=== PATIENT | female | born 1985 | race Caucasian/White ===

== ENCOUNTER → 2016-12-07 | Outpatient (CLI) | payer SELFPAY ==
[~2016-12-07] MED LIST: DOCU240C40 PO; HYDR-4246 PO; IBUP-1547 PO; PREN1TAB53 PO
== END ==
LOC: WC.BC 09:10
PROVIDERS: ATTEND Nurse Practitioner Obstetrics & Gynecology
DX: N63 Unspecified lump in breast (principal); N64.4 Mastodynia